=== PATIENT | female | born 1950 | race Two or more races ===

== ENCOUNTER 2020-06-12 10:18 | Outpatient (CLI) | payer OTHER | END 2020-06-12 10:22 | disposition home or self-care (01) | LOC: RX STUDY 10:18 | PROVIDERS: ATTEND Otolaryngology | DX: K21.9 Gastro-esophageal reflux disease without esophagitis (principal) ==

== ENCOUNTER 2023-06-11 06:00 | Day surgery (SDC) | payer OTHER ==
[2023-06-09 12:21] LABS: PH,URINE 6.5 (5.0-8.0); URINE APPEARANCE Clear; URINE BILIRRUBIN Negative (NEGATIVE); URINE BLOOD Small; URINE COLOR Yellow; URINE GLUCOSE Negative (NEGATIVE); URINE LEUKOCYTE Negative; URINE NITRATE Negative; URINE PROTEIN Negative (NEGATIVE); URINE RBC 29.7 uL (0.0-20.8); URINE UROBILINOGEN 0.2 E.U./dl; URINE WBC 3.3 uL (0.0-23.2)
[2023-06-09 12:36] LABS: URINE BACTERIA 3.7 uL (0.0-1933); URINE EPITHELIAL CELLS 1.3 uL (0.0-38.8)
[2023-06-09 12:42] LABS: HEMOGLOBIN 12.1 g/dL (12.0-15.00); MEAN CORPUSCULAR HEMOGLOBIN 29.9 pg (27.00-32.0); MEAN CORPUSCULAR HGB CONC 32.8 g/dl (32.0-36.0); PLATELET COUNT 289 K/uL (150-450); RED BLOOD COUNT 4.06 M/uL (4.00-6.00); RED CELL DISTRIBUTION WIDTH 21.4 % (11.5-14.5)
[2023-06-09 12:51] LABS: INR 1.05; PARTIAL THROMBOPLASTIN TIME 26.5 SECONDS (22.0-34.0)
[2023-06-09 12:55] LABS: ALBUMIN 3.6 gm/dL (3.4-5.0); BILIRUBIN TOTAL 0.7 mg/dL (0.3-1.2); CALCIUM 9.2 mg/dL (8.5-10.1); CREATININE SERUM 0.67 mg/dL (0.55-1.02); GFR 85.8; POTASSIUM 4.27 mEq/L (3.5-5.1); TOTAL PROTEIN 6.6 gm/dL (6.4-8.2)
[~2023-06-11] VITALS: Ht 162.6 cm; Wt 52.2 kg
[~2023-06-11 06:00] MED LIST: OSTERA TABLET1 EACH PO; SYNTHROID88 MCG PO
[2023-06-11] MEDS ORDERED: TRAMADOL HCL50 MG PO (13:22)
== END 2023-06-11 15:05 | disposition home or self-care (01) ==
LOC: CIR.AMB 06:00
PROVIDERS: ATTEND Surgery
DX: C20 Malignant neoplasm of rectum (principal); K62.89 Other specified diseases of anus and rectum; K62.5 Hemorrhage of anus and rectum; K64.8 Other hemorrhoids; I10 Essential (primary) hypertension

== ENCOUNTER 2024-03-20 16:29 | Inpatient (IN) | payer OTHER ==
[~2024-03-20] VITALS: Ht 162.6 cm; Wt 49.9 kg
[~2024-03-20 16:29] MED LIST changes: +ELIQUIS5 MG PO; +TRAMADOL HCL50 MG PO
[2024-03-20] MEDS ORDERED: RINGERS SOLUTION,LACTATED 1,000 ML IV STA (17:02)
[2024-03-20] MEDS ORDERED: MEPERIDINE HCL 25 MG/ML AMPUL IM STA (17:04)
[2024-03-20] MEDS ORDERED: PROMETHAZINE HCL 25 MG/ML AMPUL IM STA (17:04)
[2024-03-20] MEDS ORDERED: HYOSCYAMINE SULFATE 0.125 MG TAB.SUBL ONE (17:13)
[2024-03-20] MEDS ORDERED: PROMETHAZINE HCL 25 MG/ML AMPUL ONE (17:13)
[2024-03-20] MEDS ORDERED: HYOSCYAMINE SULFATE 0.125 MG TAB.SUBL SL ONE (17:15)
[2024-03-20 17:53] LABS: HEMATOCRIT 29.2 % (36.0-45.00); MEAN CELL VOLUME 79.4 fL (80.00-100.00); MEAN CORPUSCULAR HEMOGLOBIN 26.6 pg (27.00-32.0); MEAN CORPUSCULAR HGB CONC 33.5 g/dl (32.0-36.0); PLATELET COUNT 414 K/uL (150-450); RED BLOOD COUNT 3.68 M/uL (4.00-6.00); RED CELL DISTRIBUTION WIDTH 14.2 % (11.5-14.5)
[2024-03-20 17:55] LABS: HEMOGLOBIN 9.8 g/dL (12.0-15.00)
[2024-03-20 18:29] LABS: INR 1.17; PARTIAL THROMBOPLASTIN TIME 30.2 SECONDS (22.0-34.0); PROTHROMBIN TIME 12.1 SECONDS (9.0-11.5)
[2024-03-20 18:35] LABS: ALBUMIN 3.2 gm/dL (3.4-5.0); BILIRUBIN TOTAL 0.53 mg/dL (0.3-1.2); CALCIUM 9.4 mg/dL (8.5-10.1); CREATININE SERUM 0.92 mg/dL (0.55-1.02); GFR 59.51; GLOBULINA 3.6 G/DL (2.4-3.5); POTASSIUM 3.63 mEq/L (3.5-5.1); TOTAL PROTEIN 6.8 gm/dL (6.4-8.2)
[2024-03-20 20:15] LABS: PH,URINE 6.5 (5.0-8.0); URINE APPEARANCE Clear; URINE BILIRRUBIN Negative (NEGATIVE); URINE BLOOD Large; URINE COLOR Yellow; URINE GLUCOSE Negative (NEGATIVE); URINE KETONE 15 (NEGATIVE); URINE LEUKOCYTE Negative; URINE NITRATE Negative; URINE PROTEIN Trace (NEGATIVE); URINE UROBILINOGEN 0.2 E.U./dl
[2024-03-20 20:18] LABS: URINE BACTERIA 91.9 uL (0.0-1933); URINE EPITHELIAL CELLS 4.7 uL (0.0-38.8); URINE RBC 118.9 uL (0.0-20.8); URINE WBC 6.3 uL (0.0-23.2)
[2024-03-20] MEDS ORDERED: PANTOPRAZOLE SODIUM 40 MG/VIAL VIAL IV SCH (21:27)
[2024-03-20] MEDS ORDERED: TRAMADOL HCL 50 MG TABLET PO PRN (21:30)
[2024-03-20] MEDS ORDERED: 0.9 % SODIUM CHLORIDE 1,000 ML IV SCH (21:30)
[2024-03-20] MEDS ORDERED: ACETAMINOPHEN 500 MG GEL..CAP PO PRN (21:30)
[2024-03-20] MEDS ORDERED: ONDANSETRON HCL 4 MG in 0.9 % SODIUM CHLORIDE 50 ML IV PRN (21:30)
[2024-03-20 23:13] LABS: ob POSITIVE (NEGATIVE)
[2024-03-21] MEDS ORDERED: LEVOTHYROXINE SODIUM 88 MCG TABLET PO SCH (06:00)
[2024-03-21 11:43] LABS: HEMOGLOBIN 9.6 g/dL (12.0-15.00); MEAN CELL VOLUME 78.9 fL (80.00-100.00); MEAN CORPUSCULAR HEMOGLOBIN 26.9 pg (27.00-32.0); MEAN CORPUSCULAR HGB CONC 34.1 g/dl (32.0-36.0); PLATELET COUNT 361 K/uL (150-450); RED BLOOD COUNT 3.55 M/uL (4.00-6.00); RED CELL DISTRIBUTION WIDTH 14.5 % (11.5-14.5)
[2024-03-21] MEDS ORDERED: [UNRECOGNIZED DRUG - OTHER] TOP SCH (17:00)
[2024-03-21] MEDS ORDERED: SOD FERRIC GLUC COMPLX/SUCROSE 62.5 MG in 0.9 % SODIUM CHLORIDE 50 ML IV SCH (17:00)
[2024-03-21] MEDS ORDERED: BISACODYL 5 MG TABLET.EC PO SCH (17:00)
[2024-03-21] MEDS ORDERED: Cyanocobalamin/Mecobalamin 1 TAB.SL SL SCH (17:00)
[2024-03-22] MEDS ORDERED: DIBUCAINE 15 GM OINT..GM. TUBE RECTAL SCH (09:00)
[2024-03-22 16:47] LABS: HEMATOCRIT 27.6 % (36.0-45.00); HEMOGLOBIN 9.5 g/dL (12.0-15.00); MEAN CELL VOLUME 78.6 fL (80.00-100.00); MEAN CORPUSCULAR HEMOGLOBIN 27.1 pg (27.00-32.0); MEAN CORPUSCULAR HGB CONC 34.5 g/dl (32.0-36.0); PLATELET COUNT 377 K/uL (150-450); RED BLOOD COUNT 3.52 M/uL (4.00-6.00); RED CELL DISTRIBUTION WIDTH 14.8 % (11.5-14.5)
[2024-03-22] MEDS ORDERED: HYDROCORTISONE 2.5% 20 GM TUBE RECTAL SCH (21:00)
[2024-03-23] MEDS ORDERED: NA PHOS,M-B/NA PHOS,DI-BA 1 BOTTLE ENEMA RECTAL NR ×2 (11:45→12:00)
[2024-03-23] MEDS ORDERED: GABAPENTIN 100 MG CAPSULE PO SCH (17:00)
[2024-03-24] MEDS ORDERED: DIPHENHYDRAMINE HCL 50 MG/ML VIAL 1ML IV NR (11:15)
[2024-03-24] MEDS ORDERED: fentaNYL CITRATE 50 MCG/ML AMPUL IV ONE (11:15)
[2024-03-24] MEDS ORDERED: MIDAZOLAM HCL 2 MG/2 ML VIAL IV ONE (11:15)
[2024-03-25 09:47] LABS: HEMATOCRIT 29.1 % (36.0-45.00); HEMOGLOBIN 9.7 g/dL (12.0-15.00); MEAN CELL VOLUME 79.2 fL (80.00-100.00); MEAN CORPUSCULAR HEMOGLOBIN 26.5 pg (27.00-32.0); MEAN CORPUSCULAR HGB CONC 33.4 g/dl (32.0-36.0); PLATELET COUNT 389 K/uL (150-450); RED BLOOD COUNT 3.67 M/uL (4.00-6.00); RED CELL DISTRIBUTION WIDTH 14.8 % (11.5-14.5)
[2024-03-25 10:50] LABS: ALBUMIN 3.1 gm/dL (3.4-5.0); BILIRUBIN TOTAL 0.48 mg/dL (0.3-1.2); CALCIUM 8.9 mg/dL (8.5-10.1); CREATININE SERUM 0.6 mg/dL (0.55-1.02); GFR 97.46; POTASSIUM 3.6 mEq/L (3.5-5.1); TOTAL PROTEIN 6.1 gm/dL (6.4-8.2)
[2024-03-25 10:51] LABS: INR 1.18; PROTHROMBIN TIME 12.2 SECONDS (9.0-11.5)
[2024-03-25] MEDS ORDERED: POVIDONE-IODINE 118 ML BOTT TOP ONE (13:00)
[2024-03-25] MEDS ORDERED: LIDOCAINE HCL 1%/EPINEPHRINE 20ML VIAL IJ ONE (13:00)
[2024-03-25] MEDS ORDERED: BUPIVACAINE HCL/PF 0.25% 30ML VIAL InF ONE (13:00)
[2024-03-25] MEDS ORDERED: MORPHINE SULFATE 4 MG/ML CARTRIDGE IV PRN (13:15)
[2024-03-26 10:38] LABS: HEMATOCRIT 26.2 % (36.0-45.00); MEAN CELL VOLUME 78.2 fL (80.00-100.00); PLATELET COUNT 340 K/uL (150-450); RED BLOOD COUNT 3.35 M/uL (4.00-6.00)
[2024-03-26 11:21] LABS: HEMOGLOBIN 8.9 g/dL (12.0-15.00); MEAN CORPUSCULAR HEMOGLOBIN 26.5 pg (27.00-32.0)
[2024-03-26] MEDS ORDERED: NYSTATIN 30 GM,SILVER SULFADIAZINE 50 GM,ZINC OXIDE 30 GM TOP SCH (13:00)
[2024-03-26] MEDS ORDERED: FLEET BISACODYL5 MG PO (15:34)
[2024-03-26] MEDS ORDERED: GABAPENTIN 300 MG CAPSULE PO SCH (17:00)
== END 2024-03-26 19:51 | disposition home or self-care (01) | DRG 378 ==
LOC: ER 16:29 → MEDJ 21:51
PROVIDERS: General Practice; Surgery; ADMIT Internal Medicine; ATTEND Internal Medicine
PROC: BW21ZZZ Computerized Tomography (CT Scan) of Abdomen and Pelvis (ICD-10-PCS; 2024-03-20)
PROC: B54PZZZ Ultrasonography of Bilateral Upper Extremity Veins (ICD-10-PCS; 2024-03-21)
PROC: BW24YZZ Computerized Tomography (CT Scan) of Chest and Abdomen using Other Contrast (ICD-10-PCS; 2024-03-23)
PROC: 0DJD8ZZ Inspection of Lower Intestinal Tract, Via Natural or Artificial Opening Endoscopic (ICD-10-PCS; principal; 2024-03-24)
PROC: 0DBP7ZX Excision of Rectum, Via Natural or Artificial Opening, Diagnostic (ICD-10-PCS; 2024-03-25)
DX: K62.5 Hemorrhage of anus and rectum (principal); C20 Malignant neoplasm of rectum; C78.00 Secondary malignant neoplasm of unspecified lung; E03.9 Hypothyroidism, unspecified; D63.0 Anemia in neoplastic disease; Z86.718 Personal history of other venous thrombosis and embolism; Z79.01 Long term (current) use of anticoagulants

== ENCOUNTER 2024-04-05 12:22 | Outpatient (CLI) | payer OTHER ==
[~2024-04-05 12:22] MED LIST changes: +FLEET BISACODYL5 MG PO
== END 2024-04-05 13:05 | disposition home or self-care (01) ==
LOC: MAMO-SONO 12:22
DX: C20 Malignant neoplasm of rectum (principal); Z12.31 Encounter for screening mammogram for malignant neoplasm of breast

== ENCOUNTER 2024-06-20 13:49 | Inpatient (IN) | payer OTHER ==
[~2024-06-20] VITALS: Ht 154.9 cm; Wt 40.8 kg
--- NOTE | 2024-06-20 13:58 | NUR ---
PTE ALERTA Y ORIENTADA X3 REFIERE SANGRADO RECTAL FRANCIS POR SHELLI CARRERA Y DOLOR EN EL ESPALDA BAJA. PTE CON CANCER COLORECTAL, PTE DE DR CARO AGUILAR. SE LE UMANG S/V Y SE UBICA
[2024-06-20] MEDS ORDERED: MORPHINE SULFATE 4 MG/ML CARTRIDGE IV ONE (15:00)
[2024-06-20] MEDS ORDERED: ONDANSETRON 4 MG TAB.RAPDIS PO ONE (15:15)
[2024-06-20] MEDS ORDERED: 0.9 % SODIUM CHLORIDE 500 ML IV SCH (15:15)
[2024-06-20 16:23] LABS: HEMATOCRIT 37.5 % (36.0-45.00); HEMOGLOBIN 12.4 g/dL (12.0-15.00); MEAN CELL VOLUME 78.1 fL (80.00-100.00); MEAN CORPUSCULAR HEMOGLOBIN 25.9 pg (27.00-32.0); MEAN CORPUSCULAR HGB CONC 33.2 g/dl (32.0-36.0); PLATELET COUNT 482 K/uL (150-450)
[2024-06-20 16:24] LABS: RED CELL DISTRIBUTION WIDTH 20.5 % (11.5-14.5)
[2024-06-20 16:41] LABS: INR 1.2; PARTIAL THROMBOPLASTIN TIME 28.1 SECONDS (22.0-34.0); PROTHROMBIN TIME 12.9 SECONDS (9.0-11.5)
[2024-06-20 16:45] LABS: ALBUMIN 2.9 gm/dL (3.4-5.0); BILIRUBIN TOTAL 0.54 mg/dL (0.3-1.2); CALCIUM 9.2 mg/dL (8.5-10.1); CREATININE SERUM 0.48 mg/dL (0.55-1.02); GFR 125.74; GLOBULINA 3.1 G/DL (2.4-3.5); POTASSIUM 4.07 mEq/L (3.5-5.1)
--- NOTE | 2024-06-20 17:04 | NUR ---
SE REALIZA LABORATORIOS Y SE ADMINISTRA MEDICAMENTOS SEGUNNORDEN MEDICA BAJO MEDIDAS ASEPTICAS. SE ORIENTA A PTE QUIEN REFIERE ENTENDER Y ACEPTAR. PTE REFERIA NO QUERER MORFINA Y LUEGO PIDIO EL MEDICAMENTO.
[2024-06-20] MEDS ORDERED: KETOROLAC TROMETHAMINE 30 MG VIAL IV ONE (21:30)
[2024-06-21] MEDS ORDERED: ONDANSETRON HCL 4 MG in 0.9 % SODIUM CHLORIDE 50 ML IV PRN (00:15)
[2024-06-21] MEDS ORDERED: ACETAMINOPHEN 500 MG GEL..CAP PO PRN (00:15)
[2024-06-21] MEDS ORDERED: MORPHINE SULFATE 4 MG/ML CARTRIDGE IV PRN (00:15)
[2024-06-21 01:19] VITALS: BP 120/61
[2024-06-21 03:43] VITALS: BP 133/80; O2SAT 96
[2024-06-21] MEDS ORDERED: LEVOTHYROXINE SODIUM 88 MCG TABLET PO SCH (06:00)
[2024-06-21] MEDS ORDERED: FAMOTIDINE/PF 20 MG in 0.9 % SODIUM CHLORIDE 8 ML IV PUSH SCH (09:00)
[2024-06-21 09:36] VITALS: BP 102/61; O2SAT 100
[2024-06-21 17:04] VITALS: BP 130/60; O2SAT 97
[2024-06-21 23:30] VITALS: BP 117/59; O2SAT 96
[2024-06-21] MEDS ORDERED: DEXTROSE 5 % AND 0.9 % NACL 1,000 ML IV SCH (23:45)
[2024-06-21] MEDS ORDERED: MEPERIDINE HCL/PF 25 MG/ML VIAL IM ONE (23:45)
[2024-06-22 08:00] VITALS: BP 116/69; O2SAT 99
[2024-06-22 09:18] LABS: HEMATOCRIT 34.6 % (36.0-45.00); HEMOGLOBIN 11.4 g/dL (12.0-15.00); MEAN CELL VOLUME 79.7 fL (80.00-100.00); MEAN CORPUSCULAR HEMOGLOBIN 26.3 pg (27.00-32.0); PLATELET COUNT 419 K/uL (150-450); RED BLOOD COUNT 4.33 M/uL (4.00-6.00); RED CELL DISTRIBUTION WIDTH 19.6 % (11.5-14.5)
[2024-06-22 10:20] LABS: ALBUMIN 2.5 gm/dL (3.4-5.0); BILIRUBIN TOTAL 0.49 mg/dL (0.3-1.2); CALCIUM 8.9 mg/dL (8.5-10.1); CREATININE SERUM 0.47 mg/dL (0.55-1.02); GFR 128.84; GLOBULINA 2.8 G/DL (2.4-3.5); POTASSIUM 4.37 mEq/L (3.5-5.1); TOTAL PROTEIN 5.3 gm/dL (6.4-8.2)
[2024-06-22] MEDS ORDERED: TRAMADOL HCL 50 MG TABLET PO SCH (13:00)
[2024-06-22] MEDS ORDERED: DOCUSATE SODIUM 100MG CAP PO SCH (17:00)
[2024-06-22 17:24] VITALS: BP 171/74; O2SAT 99
[2024-06-22] MEDS ORDERED: PANTOPRAZOLE SODIUM 40 MG/VIAL VIAL IV SCH (21:00)
[2024-06-23] VITALS: BP 165/73; O2SAT 98
[2024-06-23] MEDS ORDERED: MORPHINE SULFATE 4 MG/ML CARTRIDGE IV PRN (03:15)
[2024-06-23 08:39] VITALS: BP 121/83; O2SAT 97
[2024-06-23 16:00] VITALS: BP 197/81; O2SAT 96
[2024-06-24] VITALS: BP 156/75; O2SAT 96
[2024-06-24 08:12] VITALS: BP 124/68; O2SAT 95
[2024-06-25 01:33] VITALS: BP 1448/67; O2SAT 98
[2024-06-25] MEDS ORDERED: MORPHINE SULFATE 4 MG/ML CARTRIDGE IV PRN (05:45)
[2024-06-25 08:00] VITALS: BP 159/72; O2SAT 98
[2024-06-25 16:54] VITALS: BP 163/66; O2SAT 95
[2024-06-26] VITALS: BP 126/75; O2SAT 95
[2024-06-26 08:00] VITALS: BP 137/64; O2SAT 95
[2024-06-26 16:56] VITALS: BP 166/79; O2SAT 92
[2024-06-26] MEDS ORDERED: MORPHINE SULFATE 4 MG/ML CARTRIDGE IV PRN (21:04)
[2024-06-26] MEDS ORDERED: ONDANSETRON HCL 4 MG in 0.9 % SODIUM CHLORIDE 50 ML IV PRN (21:30)
[2024-06-27] VITALS: BP 153/73; O2SAT 97
[2024-06-27 08:00] VITALS: BP 148/70; O2SAT 94
[2024-06-27 10:39] LABS: HEMATOCRIT 37.2 % (36.0-45.00); HEMOGLOBIN 12.1 g/dL (12.0-15.00); MEAN CELL VOLUME 79.5 fL (80.00-100.00); MEAN CORPUSCULAR HEMOGLOBIN 25.9 pg (27.00-32.0); MEAN CORPUSCULAR HGB CONC 32.6 g/dl (32.0-36.0); PLATELET COUNT 302 K/uL (150-450); RED BLOOD COUNT 4.68 M/uL (4.00-6.00); RED CELL DISTRIBUTION WIDTH 19.4 % (11.5-14.5)
[2024-06-27 16:00] VITALS: BP 135/73; O2SAT 96
[2024-06-28 00:15] VITALS: BP 143/57; O2SAT 97
[2024-06-28 10:00] VITALS: BP 116/81; O2SAT 95
[2024-06-28] MEDS ORDERED: SODIUM CHLORIDE 0.45 % 1,000 ML IV SCH (14:45)
[2024-06-28] MEDS ORDERED: fentaNYL 50 MCG PATCH.TD72 TD SCH (15:00)
[2024-06-28] MEDS ORDERED: TRAMADOL HCL 50 MG TABLET PO PRN (15:00)
[2024-06-28 16:00] VITALS: BP 156/65; O2SAT 95
[2024-06-28] MEDS ORDERED: fentaNYL 25 MCG PATCH.TD72 TD SCH (16:15)
[2024-06-28] MEDS ORDERED: SUCRALFATE 1 G TABLET PO SCH (17:00)
[2024-06-28] MEDS ORDERED: Duloxetine HCl 30 MG CAPSULE.DR PO SCH (17:00)
[2024-06-28] MEDS ORDERED: GABAPENTIN 100 MG CAPSULE PO SCH (21:00)
[2024-06-28] MEDS ORDERED: APIXABAN 2.5 MG TABLET PO SCH (21:00)
[2024-06-28 21:24] LABS: HEMATOCRIT 34.1 % (36.0-45.00); HEMOGLOBIN 11.7 g/dL (12.0-15.00); MEAN CELL VOLUME 77.7 fL (80.00-100.00); MEAN CORPUSCULAR HEMOGLOBIN 26.5 pg (27.00-32.0); MEAN CORPUSCULAR HGB CONC 34.2 g/dl (32.0-36.0); PLATELET COUNT 333 K/uL (150-450); RED BLOOD COUNT 4.39 M/uL (4.00-6.00); RED CELL DISTRIBUTION WIDTH 19.8 % (11.5-14.5)
[2024-06-28 21:45] LABS: ALBUMIN 2.2 gm/dL (3.4-5.0); BILIRUBIN TOTAL 0.56 mg/dL (0.3-1.2); CALCIUM 8.4 mg/dL (8.5-10.1); CREATININE SERUM 0.44 mg/dL (0.55-1.02); GFR 139.03; GLOBULINA 2.5 G/DL (2.4-3.5); POTASSIUM 3.22 mEq/L (3.5-5.1); TOTAL PROTEIN 4.7 gm/dL (6.4-8.2)
[2024-06-29 00:30] VITALS: BP 126/66; O2SAT 97
[2024-06-29 10:49] VITALS: BP 113/66; O2SAT 94
[2024-06-29] MEDS ORDERED: GABAPENTIN100 MG PO (11:59)
[2024-06-29] MEDS ORDERED: CYMBALTA30 MG PO (11:59)
[2024-06-29] MEDS ORDERED: LEVOTHYROXINE88 MCG PO (12:02)
[2024-06-29] MEDS ORDERED: CARAFATE1 GM PO (12:02)
== END 2024-06-29 18:00 | disposition home or self-care (01) | DRG 375 ==
LOC: ER 13:49 → SURH 06-21 → MEDJ 06-24 17:49 → SURH 06-24 20:16
PROVIDERS: Emergency Medicine; Surgery; ADMIT Internal Medicine; ATTEND Internal Medicine
PROC: 02HV33Z Insertion of Infusion Device into Superior Vena Cava, Percutaneous Approach (ICD-10-PCS; 2024-06-22)
PROC: B54MZZZ Ultrasonography of Right Upper Extremity Veins (ICD-10-PCS; principal; 2024-06-27)
DX: C20 Malignant neoplasm of rectum (principal); C78.00 Secondary malignant neoplasm of unspecified lung; K62.5 Hemorrhage of anus and rectum; C78.7 Secondary malignant neoplasm of liver and intrahepatic bile duct; I82.621 Acute embolism and thrombosis of deep veins of right upper extremity; E86.0 Dehydration; E03.9 Hypothyroidism, unspecified

== ENCOUNTER 2024-07-04 16:01 | Inpatient (IN) | payer OTHER ==
[~2024-07-04] VITALS: Ht 157.5 cm; Wt 49.9 kg
[~2024-07-04 16:01] MED LIST changes: +CARAFATE1 GM PO; +CYMBALTA30 MG PO; +GABAPENTIN100 MG PO; +LEVOTHYROXINE25 MCG PO; +LEVOTHYROXINE88 MCG PO
[2024-07-04] MEDS ORDERED: PANTOPRAZOLE SODIUM 40 MG/VIAL VIAL IV ONE (17:00)
[2024-07-04] MEDS ORDERED: LEVALBUTEROL HCL 1.25 MG/3 ML SOLUTION IH ONE (17:15)
[2024-07-04] MEDS ORDERED: PIPERACILLIN/TAZOBACTAM SODIUM 4.5 GM VIAL IV ONE (17:15)
[2024-07-04] MEDS ORDERED: 0.9 % SODIUM CHLORIDE 1,000 ML IV ONE (17:15)
[2024-07-04] MEDS ORDERED: HYDROCORTISONE SODIUM SUCC/PF 100 MG VIAL IV ONE (17:15)
[2024-07-04 18:09] LABS: HEMATOCRIT 34.1 % (36.0-45.00); HEMOGLOBIN 11.4 g/dL (12.0-15.00); MEAN CORPUSCULAR HGB CONC 33.4 g/dl (32.0-36.0); PLATELET COUNT 333 K/uL (150-450); RED BLOOD COUNT 4.38 M/uL (4.00-6.00); RED CELL DISTRIBUTION WIDTH 20.2 % (11.5-14.5)
[2024-07-04 18:12] LABS: ERYTHROCYTE SEDIMENTATION RATE 17 mm/hr
[2024-07-04] MEDS ORDERED: MORPHINE SULFATE 4 MG/ML VIAL IV ONE (18:15)
[2024-07-04 18:28] LABS: INR 1.15; PARTIAL THROMBOPLASTIN TIME 30.9 SECONDS (22.0-34.0); PROTHROMBIN TIME 12.4 SECONDS (9.0-11.5)
[2024-07-04 18:30] LABS: ALBUMIN 2.4 gm/dL (3.4-5.0); BILIRUBIN TOTAL 0.47 mg/dL (0.3-1.2); CALCIUM 8.5 mg/dL (8.5-10.1); CREATININE SERUM 0.63 mg/dL (0.55-1.02); GFR 91.88; GLOBULINA 2.7 G/DL (2.4-3.5); POTASSIUM 3.19 mEq/L (3.5-5.1); TOTAL PROTEIN 5.1 gm/dL (6.4-8.2)
[2024-07-04 18:36] LABS: C-REACTIVE PROTEIN 9.28 MG/DL (0.00-0.29)
[2024-07-04 18:53] LABS: ABG PH 7.495 (7.35-7.45); ABG PO2 56.6 mmHg (80-100); ABG pCO2 42.5 mmHg (35-45); BASE EXCESS 7.9 mmol/l; BICARBONATE 32.1 mmol/l (23-25); SaO2 92.2 %; Tco2 33.4 mmol/l; allen test SATISFACTORY; o2 21 %; puncture site RADIAL LEFT
[2024-07-04] MEDS ORDERED: IPRATROPIUM BROMIDE 0.5 MG/2.5 ML AMPUL.NEB IH SCH (20:45)
[2024-07-04] MEDS ORDERED: 0.9 % SODIUM CHLORIDE 1,000 ML IV SCH (20:45)
[2024-07-04] MEDS ORDERED: LEVALBUTEROL HCL 1.25 MG/3 ML SOLUTION IH SCH (20:45)
[2024-07-04] MEDS ORDERED: BUDESONIDE 0.5 MG/2 ML AMPUL.NEB IH SCH (21:00)
[2024-07-04] MEDS ORDERED: POTASSIUM CHLORIDE 20MEQ/100ML H2O PB IV ONE (21:00)
[2024-07-04] MEDS ORDERED: MORPHINE SULFATE 4 MG/ML CARTRIDGE IV PRN (21:00)
[2024-07-04] MEDS ORDERED: ACETAMINOPHEN 500 MG GEL..CAP PO PRN (21:00)
[2024-07-05 00:17] VITALS: BP 120/68; O2SAT 96
[2024-07-05 01:37] LABS: PHOSPHOROUS 3.5 mg/dL (2.5-4.9)
[2024-07-05] MEDS ORDERED: LEVOTHYROXINE SODIUM 25 MCG TABLET PO SCH (06:00)
[2024-07-05 06:18] LABS: PH,URINE 6.5 (5.0-8.0); URINE APPEARANCE Clear; URINE BILIRRUBIN Negative (NEGATIVE); URINE BLOOD Moderate; URINE COLOR Yellow; URINE GLUCOSE Negative (NEGATIVE); URINE KETONE 15 (NEGATIVE); URINE LEUKOCYTE Trace; URINE NITRATE Negative; URINE PROTEIN 30 (NEGATIVE)
[2024-07-05 06:22] LABS: URINE EPITHELIAL CELLS 17.3 uL (0.0-38.8); URINE RBC 89.7 uL (0.0-20.8); URINE WBC 82.8 uL (0.0-23.2)
[2024-07-05 06:33] LABS: URINE CRYSTALS FEW /HPF
[2024-07-05 07:39] VITALS: BP 149/72; O2SAT 98
[2024-07-05] MEDS ORDERED: FUROsemide 20 MG/2 ML VIAL IV SCH (09:00)
[2024-07-05] MEDS ORDERED: FAMOTIDINE/PF 20 MG in 0.9 % SODIUM CHLORIDE 8 ML IV PUSH SCH (09:00)
[2024-07-05] MEDS ORDERED: MEROPENEM 500 MG in 0.9 % SODIUM CHLORIDE 50 ML IV SCH (12:00)
[2024-07-05 16:28] VITALS: BP 109/68; O2SAT 97
[2024-07-05 19:37] VITALS: O2SAT 96
[2024-07-05 22:20] VITALS: O2SAT 97
[2024-07-05 23:02] VITALS: BP 154/84; O2SAT 96
[2024-07-06] VITALS (9 sets, daily range): BP systolic 137–157; BP diastolic 60–75; O2SAT 88–99
[2024-07-06] MEDS ORDERED: LEVOTHYROXINE SODIUM 88 MCG TABLET PO SCH (06:00)
[2024-07-06 09:32] LABS: ALBUMIN 2.3 gm/dL (3.4-5.0); BILIRUBIN TOTAL 0.59 mg/dL (0.3-1.2); CALCIUM 7.8 mg/dL (8.5-10.1); CREATININE SERUM 0.45 mg/dL (0.55-1.02); GFR 135.47; GLOBULINA 2.9 G/DL (2.4-3.5); POTASSIUM 3.68 mEq/L (3.5-5.1); TOTAL PROTEIN 5.2 gm/dL (6.4-8.2)
[2024-07-06] MEDS ORDERED: [UNRECOGNIZED DRUG - OTHER] CENTRAL SCH (10:00)
[2024-07-06] MEDS ORDERED: MORPHINE SULFATE 4 MG/ML CARTRIDGE IV PRN (11:00)
[2024-07-06 11:26] LABS: HEMATOCRIT 30.7 % (36.0-45.00); HEMOGLOBIN 10.4 g/dL (12.0-15.00); MEAN CELL VOLUME 77.7 fL (80.00-100.00); MEAN CORPUSCULAR HEMOGLOBIN 26.3 pg (27.00-32.0); MEAN CORPUSCULAR HGB CONC 33.8 g/dl (32.0-36.0); PLATELET COUNT 319 K/uL (150-450); RED BLOOD COUNT 3.95 M/uL (4.00-6.00); RED CELL DISTRIBUTION WIDTH 20.3 % (11.5-14.5)
[2024-07-06] MEDS ORDERED: SOD FERRIC GLUC COMPLX/SUCROSE 62.5 MG/5 ML AMPUL IV NR (12:00)
[2024-07-06] MEDS ORDERED: ONDANSETRON HCL 2 MG/ML VIAL IV SCH (12:00)
[2024-07-06] MEDS ORDERED: APIXABAN 2.5 MG TABLET PO SCH (17:00)
[2024-07-06] MEDS ORDERED: AA 3.31 %/D9.8W/FAT/E-LYTES 10 2,053 ML CENTRAL SCH (17:00)
[2024-07-06 19:03] LABS: ABG PH 7.492 (7.35-7.45); ABG pCO2 44.6 mmHg (35-45)
[2024-07-06 19:05] LABS: ABG PO2 359.7 mmHg (80-100); BASE EXCESS 8.9 mmol/l; BICARBONATE 33.3 mmol/l (23-25); Tco2 34.7 mmol/l
[2024-07-06 19:06] LABS: allen test SATISFACTORY; puncture site RADIAL RIGHT
[2024-07-06 19:07] LABS: o2 50 %
[2024-07-06] MEDS ORDERED: PANTOPRAZOLE SODIUM 40 MG/VIAL VIAL IV SCH (21:00)
[2024-07-07] VITALS (10 sets, daily range): BP systolic 175–184; BP diastolic 80–90; O2SAT 96–100
[2024-07-07] MEDS ORDERED: SOD FERRIC GLUC COMPLX/SUCROSE 62.5 MG in 0.9 % SODIUM CHLORIDE 50 ML IV SCH (09:00)
[2024-07-08] VITALS (9 sets, daily range): BP systolic 132–177; BP diastolic 70–81; O2SAT 90–100
[2024-07-08] MEDS ORDERED: MORPHINE SULFATE 4 MG/ML CARTRIDGE IV PRN (11:30)
[2024-07-08] MEDS ORDERED: ALUMINUM HYD MM SCH (17:00)
[2024-07-08] MEDS ORDERED: [UNRECOGNIZED DRUG - OTHER] MM SCH (17:00)
[2024-07-08] MEDS ORDERED: SIMETH MM SCH (17:00)
[2024-07-08] MEDS ORDERED: MAG HYDROX MM SCH (17:00)
[2024-07-09] VITALS (8 sets, daily range): BP systolic 163–179; BP diastolic 83–96; O2SAT 90–99
[2024-07-09 09:21] LABS: HEMATOCRIT 31.2 % (36.0-45.00); HEMOGLOBIN 10.3 g/dL (12.0-15.00); MEAN CELL VOLUME 78.2 fL (80.00-100.00); MEAN CORPUSCULAR HEMOGLOBIN 25.9 pg (27.00-32.0); MEAN CORPUSCULAR HGB CONC 33.2 g/dl (32.0-36.0); PLATELET COUNT 269 K/uL (150-450); RED BLOOD COUNT 3.99 M/uL (4.00-6.00); RED CELL DISTRIBUTION WIDTH 19.9 % (11.5-14.5)
[2024-07-09] MEDS ORDERED: fentaNYL 25 MCG PATCH.TD72 TD SCH (14:45)
[2024-07-09 16:23] LABS: CALCIUM 8.2 mg/dL (8.5-10.1); CREATININE SERUM 0.39 mg/dL (0.55-1.02); GFR 159.79; POTASSIUM 3.33 mEq/L (3.5-5.1)
[2024-07-10] VITALS (9 sets, daily range): BP systolic 130–152; BP diastolic 70–90; O2SAT 90–99
[2024-07-10] MEDS ORDERED: POTASSIUM CHLORIDE IN WATER 100 ML IV SCH (17:08)
[2024-07-10] MEDS ORDERED: MAGNESIUM SULFATE IN WATER 50 ML IV SCH (18:00)
[2024-07-11] VITALS (8 sets, daily range): BP systolic 137–153; BP diastolic 69–83; O2SAT 90–98
[2024-07-11] MEDS ORDERED: MORPHINE SULFATE 4 MG/ML CARTRIDGE IV PRN (01:00)
[2024-07-11] MEDS ORDERED: MORPHINE SULFATE 50 MG in 0.9 % SODIUM CHLORIDE 50 ML IV SCH (10:15)
[2024-07-12] VITALS (9 sets, daily range): BP systolic 106–119; BP diastolic 61–69; O2SAT 96–99
[2024-07-12] MEDS ORDERED: fentaNYL 25 MCG PATCH.TD72 TD SCH (14:00)
[2024-07-13] VITALS (9 sets, daily range): BP systolic 115–144; BP diastolic 58–71; O2SAT 84–95
[2024-07-13] MEDS ORDERED: MORPHINE SULFATE 50 MG in 0.9 % SODIUM CHLORIDE 50 ML IV SCH (22:30)
[2024-07-14 00:43] VITALS: O2SAT 94
[2024-07-14 01:38] VITALS: BP 115/76; O2SAT 95
[2024-07-14 06:57] VITALS: O2SAT 0
== END 2024-07-14 13:17 | disposition expired | DRG 189 ==
LOC: ER 16:03 → SEC-K 21:03 → SURH 21:29 → SEC-K 07-05 02:41 → MEDJ 07-05 16:24
PROVIDERS: General Practice; ADMIT Internal Medicine; ATTEND Internal Medicine
PROC: BB24ZZZ Computerized Tomography (CT Scan) of Bilateral Lungs (ICD-10-PCS; principal; 2024-07-04)
PROC: 3E0F7GC Introduction of Other Therapeutic Substance into Respiratory Tract, Via Natural or Artificial Opening (ICD-10-PCS; 2024-07-04)
PROC: BB24YZZ Computerized Tomography (CT Scan) of Bilateral Lungs using Other Contrast (ICD-10-PCS; 2024-07-05)
PROC: 02HV33Z Insertion of Infusion Device into Superior Vena Cava, Percutaneous Approach (ICD-10-PCS; 2024-07-05)
PROC: 4A12X4Z Monitoring of Cardiac Electrical Activity, External Approach (ICD-10-PCS; 2024-07-05)
DX: J96.91 Respiratory failure, unspecified with hypoxia (principal); C20 Malignant neoplasm of rectum; C78.00 Secondary malignant neoplasm of unspecified lung; C78.7 Secondary malignant neoplasm of liver and intrahepatic bile duct; K62.5 Hemorrhage of anus and rectum; I82.621 Acute embolism and thrombosis of deep veins of right upper extremity; J90 Pleural effusion, not elsewhere classified; E86.0 Dehydration; E87.6 Hypokalemia; K21.9 Gastro-esophageal reflux disease without esophagitis; Z66 Do not resuscitate